=== PATIENT | male | born 1970 | race Caucasian/White ===

== ENCOUNTER 2020-12-19 21:19 | Emergency (ER) | payer OTHER ==
[2020-12-19 22:14] LABS: BASOPHIL 0.3 % (0-2); EOSINOPHIL 0.9 % (0-5); HCT 32.5 % (42.0-52.0); HGB 10.2 g/dl (13.2-18.0); MCH 27.7 pg (25.0-31.0); MCHC 31.4 g/dL (32.0-36.0); MCV 88.3 fL (78.0-100.0); MONOCYTE 7.3 % (0-12); MPV 8.7 fL (6.0-9.5); NEUTROPHIL 80.9 % (41-80); NRBC 0; PLT 504 K/uL (150-400); RBC 3.68 M/uL (4.70-6.00); RDW 14.3 % (11.5-14.0); WBC 14.8 K/uL (4.0-10.5)
[2020-12-19 22:31] LABS: BUN/CREAT RATIO (CALC) 20.7 RATIO; CREATININE 0.58 mg/dL (0.67-1.17); POTASSIUM 3.7 mmol/L (3.5-5.1)
[2020-12-19 23:25] LABS: BILIRUBIN NEGATIVE (NEGATIVE); BLOOD TRACE-INTACT Ery/uL (NEGATIVE); CLARITY CLEAR (CLEAR); COLOR YELLOW (YELLOW); GLUCOSE (U) NORMAL (NORMAL); LEUKOCYTES 3+ Leu/uL (NEGATIVE); NITRITE NEGATIVE (NEGATIVE); PROTEIN 1+ mg/dL (NEGATIVE); SPECIFIC GRAVITY 1.015 (1.001-1.030); UROBILINOGEN 0.2 mg/dL (0.2-1.0)
[2020-12-19 23:37] LABS: URINARY WBC TNTC
[2020-12-19 23:38] LABS: BACTERIA 1+
[2020-12-20] MEDS ORDERED: BACTRIM DS TAB1 EACH PO ×2 (00:05→00:06)
== END 2020-12-20 00:35 | disposition home or self-care (01) ==
LOC: FER 21:19
PROVIDERS: Nurse Practitioner Family
DX: T83.511A Infection and inflammatory reaction due to indwelling urethral catheter, initial encounter (principal); N39.0 Urinary tract infection, site not specified; Z79.899 Other long term (current) drug therapy; Y73.2 Prosthetic and other implants, materials and accessory gastroenterology and urology devices associated with adverse incidents
CPT/HCPCS: 36415; 80048; 81001; 85025; 87088; 99283; J0696

== ENCOUNTER 2021-02-06 09:02 | Emergency (ER) | payer OTHER ==
[~2021-02-06 09:02] MED LIST: BACTRIM DS TAB1 EACH PO; SANTYL15 GM TOP
== END 2021-02-06 11:55 | disposition home or self-care (01) ==
LOC: FER 09:02
DX: Z46.6 Encounter for fitting and adjustment of urinary device (principal); F17.210 Nicotine dependence, cigarettes, uncomplicated; Z79.01 Long term (current) use of anticoagulants; Z79.899 Other long term (current) drug therapy